=== PATIENT | female | born 1960 | race Caucasian/White ===

== ENCOUNTER 2017-09-28 08:40 | Inpatient (IN) | payer OTHER ==
--- NOTE | 2017-09-25 17:15 | HP ---
CC: Dr. Mathews; Dr. Alonzo * ADMISSION HISTORY AND PHYSICAL: DATE OF ADMISSION: 09/28/17 ATTENDING SURGEON: Dr. Higinio Hyman.* (DICTATED BY DEMETRIO HERNANDEZ) CHIEF COMPLAINT: Bilateral lung nodules. HISTORY OF PRESENT ILLNESS: This is a 57-year-old female with past history of colon cancer, who in recent months had experienced decreased appetite with some weight loss and nocturnal cough. She also has had some neurological symptoms. She reports that the weight loss of approximately 6 pounds has resolved and that she has regained all of the lost weight and currently has a good appetite. She has continued to have cough for which she had been treated with multiple antibiotic regimen with [id number] improvement. She states that the cough is productive of whitish sputum. She denies fever or chills. She states that the cough has been present all winter. She is currently on Keflex. She is an active smoker, who is cutting down and attempting to quit. Chest CT was obtained on 07/24/17, apparently showing multiple bilateral lung nodules; that report is not immediately available. [place] [facility] [place], did confirm multiple solid and ground glass nodules bilaterally measuring up to 8 mm in size with mild increased avidity (up to 2.2 SUV). These appeared to be slightly progressed since the prior study. In addition, there was mildly prominent increased right hilar avidity (up to SUV 2.8) suspicious for adenopathy. Finally, there was increased metabolic activity noted in the C- spine at the C3-4 facet junction that was felt to be consistent with osteoarthritic changes. The patient states that she has also undergone recent CT of the abdomen and pelvis, which she was told was normal. Again, that study is not specifically available. An MRI of the brain on 09/04/17 was normal by report. She denies hemoptysis. As noted above, cough persists. She was seen by Dr. Hyman on 09/04/17 and her diagnostic studies were reviewed. He did note the presence of bilateral lung nodules. These are most prominent in the upper lobes. However, there did appear to some activity in the left lingula. The patient understands the indications for surgery, the risks, benefits, and alternatives, and would like to proceed with left thoracoscopy with lung biopsy. PAST MEDICAL HISTORY: Colon cancer (status post laparoscopic right hemicolectomy [address] [facility] for T3N0 lesion. She received postoperative chemotherapy), hypothyroidism (on replacement), chronic pain, depression, active smoker. PAST SURGICAL HISTORY: Includes right hemicolectomy as noted above, laparoscopic cholecystectomy, and right wrist surgery for de Quervain's tenosynovitis. CURRENT MEDICATIONS: 1. Keflex 500 mg b.i.d., which she started on 09/20/17. 2. Levothyroxine 50 mcg q. day. 3. Gabapentin 600 mg b.i.d. 4. Venlafaxine 25 mg once daily. 5. Vitamin D3 2000 International Units once daily. 6. Vitamin C 500 mg once daily. 7. Ashwagandha (Siberian root for mood stabilization) once daily (the patient instructed to hold after today). DRUG ALLERGIES: CIPRO, BUPROPION, ASPIRIN, NAPROXEN, TORADOL, TRAMADOL (all caused hives) (the patient does tolerate ibuprofen); OXYCODONE (hypotension). FAMILY HISTORY: Negative for lung cancer. There is no known family history of anesthesia problems, bleeding or clotting disorders. SOCIAL HISTORY: The patient lives with her fiance and grandchild. She works as a nurse's aide. She currently smokes 5 cigarettes per day down from one- half pack per day. She has smoked for the past 40 years. She intends to quit. She denies use of alcohol or recent use of recreational drugs. REVIEW OF SYSTEMS: General: No recent constitutional symptoms or acute illnesses other than described in the HPI. Eyes: The patient states she has early cataracts. Ears, Nose, and Throat: No recent problems reported. She does have a full upper denture. Cardiovascular: No chest pain, palpitations, or history of heart murmur. No history of hypertension. Respiratory: As above per HPI, no additions. GI: No problems reported. Colonoscopy done May 2016 and normal by report. No lower GI symptoms. : No problems reported. COMPENSATION ADJUSTER: She is up-to-date as of May 2017 for breast and pelvic exams as well as mammogram, all reportedly normal done at [facility]. Endocrine: No diabetes. She is on thyroid supplementation. Neurological: Chronic pain. Psychological and Psychiatric: She is treated for depression. PHYSICAL EXAMINATION GENERAL: Well-nourished, well-developed female, in no acute distress. VITAL SIGNS: Height 68 inches, weight 140 pounds. Temperature 98.1, blood pressure 102/60, pulse 84. HEENT: Pupils are equal, and round, reactive. EOMs intact. No conjunctival pallor. Oropharynx: Full upper denture. Remaining lower teeth in good repair. No intraoral lesions. NECK: No lymphadenopathy in the cervical or supraclavicular regions. No masses or thyromegaly (she does relate some tenderness along the right SCM since removal of her PowerPort a few years ago. No palpable abnormalities in the neck or right upper chest wall). LUNGS: Clear to auscultation. No rales or wheezes. HEART: Regular rate and rhythm. No murmur appreciated. BREASTS: Not examined. ABDOMEN: Soft, nontender to palpation. No palpable masses or organomegaly. GENITALIA: Not done. RECTAL: Not done. BACK: No spinous process or CVA tenderness. EXTREMITIES: No edema. NEUROLOGICAL: Grossly intact. SKIN: Warm and dry. No suspicious rashes or lesions noted. IMPRESSION: Multiple bilateral lung nodules. PLAN: Left thoracoscopy with lung biopsy. DEMETRIO HERNANDEZ [id number]/[facility] #: [id number] PATIENCE
[~2017-09-28 08:40] MED LIST: Buffered Lidocaine 0.9% SYRIN* 5 ML/SYR SYRINGE INTRADERM ONE; DiMENhydriNATE IV* 50 MG/ML VIAL IV PUSH PRN; Famotidine TAB* 20 MG PO ONE; Morphine INJ* 2 MG/ML 1 ML CARPUJECT IV PRN; Naloxone* 0.4 MG/ML 1 ML VIAL IV PRN; Ondansetron INJ* 2 MG/ML VIAL ONE; PROCHLORPERAZINE INJ 5 MG/ML 2 ML VIAL IV PRN; Scopolamine 1.5 mg* PATCH TRANSDERM PRN
[2017-09-28] MEDS ORDERED: Heparin VIAL(*) 5000 UNITS/ML VIAL (FIVE THOUSAND) ONE (08:50)
[2017-09-28] MEDS ORDERED: Ondansetron ODT TAB* 4 MG ONE (08:51)
[2017-09-28] MEDS ORDERED: Famotidine TAB* 20 MG ONE (08:51)
[2017-09-28] MEDS ORDERED: ceFAZolin 2 GM PREMIX (*) 2 GM/50 ML BAG IVPB ONE (08:51)
[2017-09-28] MEDS ORDERED: Buffered Lidocaine 0.9% SYRIN* 5 ML/SYR SYRINGE ONE (08:51)
[2017-09-28] MEDS ORDERED: Atracurium* 10 MG/ML 10 ML VIAL ONE (09:18)
[2017-09-28] MEDS ORDERED: Midazolam* 1 MG/ML 5 ML VIAL (5 MG) ONE (09:19)
[2017-09-28] MEDS ORDERED: fentaNYL* 50 MCG/ML 5 ML VIAL (250 MCG VIAL) ONE (09:19)
[2017-09-28] MEDS ORDERED: Bupivacaine 0.25% SDV* 30 ML ONE (09:41)
[2017-09-28] MEDS ORDERED: KETAMINE HCL* 50 MG/ML 10 ML VIAL ONE (09:47)
[2017-09-28] MEDS ORDERED: Dexamethasone IV* 4 MG/ML 1 ML (4 MG) ONE (11:11)
[2017-09-28] MEDS ORDERED: Propofol* 10 MG/ML 20 ML BTL IV PUSH ONE (11:11)
[2017-09-28] MEDS ORDERED: Glycopyrrolate IV* 0.2 MG/ML 1 ML VIAL ONE (11:11)
[2017-09-28] MEDS ORDERED: EPHEDrine (Pressors)* 50 MG/ML VIAL ONE (11:11)
[2017-09-28] MEDS ORDERED: Norepinephrine VIAL* 1 MG/ML 4 ML VIAL ONE (11:12)
[2017-09-28] MEDS ORDERED: Phenylephrine INJ* 10 MG/ML 1 ML VIAL (10 MG) ONE (11:12)
[2017-09-28] MEDS ORDERED: Lidocaine 2% PF * 5 ML VIAL ONE (11:12)
[2017-09-28] MEDS ORDERED: Docusate CAP* 100 MG PO PRN (13:27)
[2017-09-28] MEDS ORDERED: oxyCODONE/Acetamin 5/325 MG* TAB PO PRN (13:27)
[2017-09-28] MEDS ORDERED: Ondansetron INJ* 2 MG/ML VIAL IV PRN (13:27)
[2017-09-28] MEDS ORDERED: fentaNYL* 50 MCG/ML 2 ML VIAL (100 MCG VIAL) ONE (13:32)
[2017-09-28] MEDS: fentaNYL* 50 MCG/ML 2 ML VIAL (100 MCG VIAL) IV PRN ×3 (13:32→13:43)
[2017-09-28] MEDS ORDERED: Ketorolac INJ* 30 MG/ML 1 ML VIAL IV SCH (14:00)
[2017-09-28] MEDS ORDERED: Morphine INJ* 10 MG/ML 1 ML CARPUJECT ONE (14:24)
[2017-09-28] MEDS ORDERED: HYDROcodone/ACETAMIN 5-325 MG* 1 TAB ONE (14:24)
[2017-09-28] MEDS: HYDROcodone/ACETAMIN 5-325 MG* 1 TAB PO PRN (14:25)
--- NOTE | 2017-09-28 14:46 | RAD ---
HISTORY: Left-sided chest tube COMPARISONS: January 24, 2013 VIEWS: 1: frontal portable view of the chest at 1:30 PM FINDINGS: LINES AND TUBES: A left-sided chest tube is noted. CARDIOMEDIASTINAL SILHOUETTE: The cardiomediastinal silhouette is normal for portable technique. PLEURA: The costophrenic angles are sharp. No pleural abnormalities are noted. There is no appreciable pneumothorax. LUNG PARENCHYMA: There is mild perihilar alveolar opacification. ABDOMEN: The upper abdomen is clear. There is no subphrenic gas. BONES AND SOFT TISSUES: No bone or soft tissue abnormalities are noted. IMPRESSION: LEFT-SIDED CHEST TUBE WITH MILD PERIHILAR CONSOLIDATION.
[2017-09-28] MEDS ORDERED: NS 0.9% 1000 ML* 1,000 ML IV ONE ×2 (17:55→18:00)
[2017-09-28] MEDS: Heparin VIAL(*) 5000 UNITS/ML VIAL (FIVE THOUSAND) SUBCUT SCH ×2 (18:06→20:39)
[2017-09-28] MEDS: Gabapentin CAP(*) 300 MG PO SCH (20:36)
[2017-09-29] MEDS: HYDROcodone/ACETAMIN 5-325 MG* 1 TAB PO PRN ×5 (00:30→17:33)
[2017-09-29] MEDS: HYDROmorphone INJ* 2 MG/ML CARPUJECT SYRINGE IV PRN ×6 (02:02→20:47)
[2017-09-29] MEDS: Levothyroxine TAB* 50 MCG TAB PO SCH (05:29)
[2017-09-29] MEDS: Heparin VIAL(*) 5000 UNITS/ML VIAL (FIVE THOUSAND) SUBCUT SCH ×3 (05:31→20:50)
--- NOTE | 2017-09-29 06:11 | OP ---
CC: Dr. Laureano Mathews; Dr. Rosie Alonzo * DATE OF OPERATION: 09/28/17 - ROOM #342 DATE OF : 58 SURGEON: Higinio Hyman MD SUBSTANCE ABUSE PREVENTION COORDINATOR: None. ANESTHESIOLOGIST: Dr. Rocha. ANESTHESIA: General anesthetic, local infiltration. PRE-OP DIAGNOSIS: Nodules in the left lung. POST-OP DIAGNOSIS: Nodules in the left lung. OPERATIVE PROCEDURE: Left video thoracoscopy with left lung biopsies. DESCRIPTION OF PROCEDURE: The patient was supine on the operating room table. After adequate intravenous antibiotics, compression stockings, Roosevelt Hugger warmer, and double lumen intubation, a fiberoptic bronchoscopy was also carried out to confirmed location of the double-lumen intubation, she was placed in the lateral decubitus position with the left chest upward, stockings and warmers were also in place, she had an axillary roll and everything was positioned and padded, and she was secured to the table. The left chest was prepped with antiseptic and draped in a sterile fashion. Local infiltrative anesthesia was administered and the chest entered through approximately the 8th interspace. The scope was entered and two additional 5 mm sites were chosen and cannulae were placed there. The lung was examined all over with special attention to areas indicated by the imaging and no visible nodules could be identified. Palpation was carried out along the anterior aspect of the upper lobe where there seemed to be some superficial lesions and these were not palpable either. It was decided that a wedge of lung would be taken out using stapler and a piece of lung tissue approximately 3 x 3 x 6 cm was removed and sent fresh to Pathology. They were unable to identify any lesions in the area. Additional tissue was also taken a little further up on the lung, also medially, and this was may be a 3 x 4 x 4 cm piece, which was sent to Pathology as well. Hemostasis was excellent. A 32-Mongolian chest tube was put into the chest cavity , placed up towards the apex and sutured at the skin with Prolene suture. The skin incisions were closed with 5-0 Vicryl, followed by Steri-Strips. A gauze dressing was placed and the chest tube was hooked to the Pleur-evac suction. She was awakened, extubated, and brought to recovery in good condition. Local anesthetic was given in an intercostal block as well. Sponge and instruments counts were correct at the end of the procedure. Estimated blood loss was maybe 50 mL. Specimens as noted above. [id number]/[facility] #: [id number] [facility] CENTERFredy
[2017-09-29] MEDS: Gabapentin CAP(*) 300 MG PO SCH ×2 (09:17→20:48)
[2017-09-29] MEDS: CMCS Venlafaxine TAB (NF) 25 MG TAB PO SCH (09:18)
--- NOTE | 2017-09-29 10:42 | PN ---
Progress Note - Progress Note Date of Service: 09/29/17 Note: POD#1 s/p VATS, left Afeb, VS noted UO adeq. CT level 210 since OR, no air leak Pain control and issue Alert and coherent, color good Breathing unlabored, adeq aeration, some rattles on left, drsg w/ min drainage Tender LUQ, seems to be dermatome related to chest tube, hyperesthesia noted Impr adeq recovery post vats To water seal recheck drainage later today, poss d/c tube increase norco until pain better await path
--- NOTE | 2017-09-29 13:56 | PN ---
Progress Note - Progress Note Date of Service: 09/29/17 Note: Left chest tube removed with ease after premedicating with Dilaudid IV; occlusive dressing applied;pt tolerated well.
[2017-09-29] MEDS ORDERED: Polyethylene Glycol 3350* 17 GM PACKET PO PRN (17:48)
[2017-09-29] MEDS ORDERED: Senna TAB ONE (18:08)
[2017-09-29] MEDS ORDERED: Senna TAB PO PRN (18:08)
[2017-09-30] MEDS: HYDROcodone/ACETAMIN 5-325 MG* 1 TAB PO PRN (01:28)
[2017-09-30] MEDS: Levothyroxine TAB* 50 MCG TAB PO SCH (05:43)
[2017-09-30] MEDS: Heparin VIAL(*) 5000 UNITS/ML VIAL (FIVE THOUSAND) SUBCUT SCH (05:45)
[2017-09-30 08:58] VITALS: BP 101/53
--- NOTE | 2017-09-30 09:14 | PN ---
Progress Note - Progress Note Date of Service: 09/30/17 Note: POD#2 s/p Left VATS Discharge note dictated.
[2017-09-30] MEDS: Gabapentin CAP(*) 300 MG PO SCH (09:53)
[2017-09-30] MEDS: CMCS Venlafaxine TAB (NF) 25 MG TAB PO SCH (09:53)
--- NOTE | 2017-09-30 14:18 | DS ---
CC: Higinio Hyman MD; Rosie Alonzo MD; Dr. Laureano Mathews. DISCHARGE SUMMARY: DATE OF ADMISSION: 09/28/17 DATE OF DISCHARGE: 09/30/17 PRINCIPAL ADMITTING DIAGNOSIS: Nodule of both lungs. OPERATIVE PROCEDURE ON THIS ADMISSION: Left videothoracoscopy with biopsies. HOSPITAL COURSE: The patient came to the hospital, was taken to the operating room on 09/28/17 where she underwent left videothoracoscopy and left lung biopsy of the upper lobe. She had a chest tube m aintained for about 36 hours and that was removed. Her pain control improved dramatically after violetta merlyn of the chest tube. On the morning of 09/30/17, she was tolerating oral intake, managing well on o ral pain medication, breathing well, and ambulating independently. Lung sounds were good. She was d ischarged with instructions and will follow up in the office in about a week. She had a pathology re port, which showed no evidence of malignancy. 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 [id number]/[facility] #: [id number]
[2017-10-01] MEDS ORDERED: Scopolamine PATCH Remove* 1 NOTE MISC PATCH OFF ONE (05:56)
== END 2017-09-30 11:00 | disposition home or self-care (01) | DRG 121 ==
LOC: OR 08:40 → SSU 09:00 → INTOOBSV 13:27 → EDSTATUS 13:30 → OBSVTOIN 09-29 09:00
PROVIDERS: ADMIT Surgery; ATTEND Surgery
PROC: 0BBG4ZX Excision of Left Upper Lung Lobe, Percutaneous Endoscopic Approach, Diagnostic (ICD-10-PCS; 2017-09-28)
PROC: 0WPBX0Z Removal of Drainage Device from Left Pleural Cavity, External Approach (ICD-10-PCS; principal; 2017-09-29)
DX: J84.116 Cryptogenic organizing pneumonia (principal); Z85.038 Personal history of other malignant neoplasm of large intestine; E03.9 Hypothyroidism, unspecified; Z92.21 Personal history of antineoplastic chemotherapy; G89.29 Other chronic pain; Z90.49 Acquired absence of other specified parts of digestive tract; F32.9 Major depressive disorder, single episode, unspecified; Z88.1 Allergy status to other antibiotic agents; Z88.6 Allergy status to analgesic agent; Z88.5 Allergy status to narcotic agent; Z88.8 Allergy status to other drugs, medicaments and biological substances; F17.210 Nicotine dependence, cigarettes, uncomplicated; H26.9 Unspecified cataract
CPT/HCPCS: 71045; 88307; 88331; 88332; A9270-GY; C1776; J0690; J1100; J1170; J1644; J2250; J2270; J2704; J3010

== ENCOUNTER 2017-10-22 10:43 | Emergency (ER) | payer OTHER ==
[2017-10-22] MEDS ORDERED: NS 0.9% 1000 ML* 1,000 ML IV ONE (11:06)
--- NOTE | 2017-10-22 11:30 | RAD ---
INDICATION: Chest pain. Pulmonary metastasis. COMPARISON: September 28, 2017 TECHNIQUE: An AP portable view obtained at 1117 hours is submitted. FINDINGS: Bones/Soft Tissues: There are no acute bony findings. Cardiomediastinal: The cardiomediastinal silhouette is normal. Lungs: There are no infiltrates. There is no pneumothorax Pleura: There are no pleural effusions. Other: None IMPRESSION: NO ACTIVE CARDIOPULMONARY DISEASE. NO SIGNIFICANT PLAIN RADIOGRAPHIC ABNORMALITIES.
[2017-10-22 11:31] LABS: ABS Basophils 0.1 10^3/ul (0-0.2); ABS Eosinophils 0.4 10^3/ul (0-0.6); ABS Lymphocytes 2.3 10^3/ul (1.0-4.8); ABS Monocytes 0.5 10^3/ul (0-0.8); ABS Neutrophils 2.9 10^3/ul (1.5-7.7); ABS Nucleated RBC 0 10^3/ul; Eosinophil % 5.7 % (0-6); Hematocrit 40 % (35-47); Hemoglobin 13.2 g/dl (12.0-16.0); Lymphocyte % 37.4 % (25-47); Mean Corpuscular HGB Conc 33 g/dl (31-36); Mean Corpuscular Hemoglobin 30 pg (27-31); Mean Corpuscular Volume 89 fL (80-97); Mean Platelet Volume 7.3 um3 (7.4-10.4); Nucleated Red Blood Cells % 0.1; Platelet Count 337 10^3/ul (150-450); Red Blood Count 4.43 10^6/ul (4.0-5.4); Red Cell Distribution Width 13 % (10.5-15); White Blood Count 6.2 10^3/ul (3.5-10.8)
[2017-10-22 11:35] LABS: Urine Appearance Clear; Urine Blood Negative (Negative); Urine Color Yellow; Urine Ketones Negative (Negative); Urine Protein Negative (Negative); Urine Specific Gravity 1.012 (1.010-1.030); Urine Urobilinogen Negative (Negative)
[2017-10-22 11:40] LABS: INR 0.93 (0.77-1.02)
[2017-10-22 11:41] LABS: EGFR Non-African American 73.7 (>60)
[2017-10-22] MEDS ORDERED: Iohexol 300* (CONTRAST) 10 ML SDV IV ONE (12:47)
--- NOTE | 2017-10-22 13:41 | RAD ---
INDICATION: Abdominal pain. Diverticulitis . COMPARISON: CT chest/abdomen/pelvis July 24, 2017 TECHNIQUE: Axial source images were obtained from the hemidiaphragms to the symphysis pubis following administration of oral and intravenous contrast. 85 mL Omnipaque 300 was utilized. Coronal and sagittal reconstructed images were acquired. Lung bases: The lung bases are clear. Liver: The liver is normal in size. There are no new masses. There are numerous subcentimeter hepatic hypodensities appear unchanged. There is no ductal dilatation. Gallbladder: Cholecystectomy. Spleen: The spleen is normal in size. There are no masses. Pancreas: There is no focal pancreatic mass or ductal dilatation. Adrenal glands: There is no evidence of adrenal mass. Kidneys: The kidneys are normal in size and position. There are prompt nephrograms and there is prompt excretion bilaterally. There are no renal parenchymal masses. There is no evidence of nephrolithiasis. Adenopathy: There is no evidence of adenopathy by size criteria. Fluid collections: There are no free or localized fluid collections. Vessels:There are no significant atherosclerotic changes involving the aorta. There is no focal aneurysm. The iliac vessels are normal in caliber. The IVC appears normal. There are prominent pelvic veins GI tract: There are no acute CT bowel findings. There is right hemicolectomy. There are scant diverticula without CT evidence of acute diverticulitis Pelvic organs: The uterus and adnexa appear normal Bladder: There are no bladder masses. Abdominal and pelvic soft tissues: The extraperitoneal abdominal and pelvic soft tissues appear normal.. Osseous structures: There are no acute osseous findings. Other: None IMPRESSION: 1. No convincing evidence of metastatic disease to the abdomen or pelvis. Multiple stable hypodensities in the liver. 2. Right hemicolectomy. No finding specific for recurrence. Scant diverticula without CT evidence of acute diverticulitis. 3. Prominent pelvic veins, unchanged. This could result in pelvic congestion syndrome.
[2017-10-22] MEDS ORDERED: Omeprazole CAP* 20 MG PO ONE (14:01)
[2017-10-22 14:14] VITALS: BP 128/81
--- NOTE | 2017-10-22 14:16 | ED ---
Jolie Hoskins Gabriel scribed for Gilbert Cortez on 10/22/17 at 1105 . Abdominal Pain/Female - HPI Summary HPI Summary: This patient is a 57 year old F presenting to [facility] with a chief complaint of epigastria pain that began after her lung biopsy on 09-28-17 and has gotten worse since. Patient reports CP and ABD bloating. The patient rates the pain 8/10 in severity. Symptoms aggravated by sitting up. Patient denies fever and chills. The pt has a hx of colon cancer and had a lung biopsy 09-28 to r/o metastasis to the lung. Since then she has had abd pain and bloating, she contacted her PCP who said it should resolve but it has not - History of Current Complaint Chief Complaint: Maria Victoria Stated Complaint: ABD PAIN FOLLOWING SURGERY Time Seen by Provider: 10/22/17 10:56 Hx Obtained From: Patient Onset/Duration: Lasting Weeks, Still Present Timing: Constant Severity Initially: Severe Severity Currently: Severe Pain Intensity: 8 Pain Scale Used: 0-10 Numeric Location: Epigastric Radiates: Yes Radiates to: Chest Associated Signs and Symptoms: Positive: Other: - CP and ABD bloating Allergies/Adverse Reactions: Allergies Allergy/AdvReac Type Severity Reaction Status Date / Time aspirin Allergy Severe Hives Verified 10/22/17 10:52 bupropion [From Wellbutrin] Allergy Severe Hives Verified 10/22/17 10:52 ciprofloxacin [From Cipro] Allergy Severe Hives Verified 10/22/17 10:52 ketorolac Allergy Severe Hives Verified 10/22/17 10:52 naproxen [From Aleve] Allergy Severe Hives Verified 10/22/17 10:52 oxycodone Allergy Severe Hives Verified 10/22/17 10:52 tramadol Allergy Severe Hives Verified 10/22/17 10:52 Home Medications: Home Medications Ascorbic Acid TAB* [Vitamin C TAB*] 500 mg PO DAILY 10/22/17 [History Confirmed 10/22/17] Cholecalciferol TAB* [Vitamin D TAB*] 2,000 units PO DAILY 10/22/17 [History Confirmed 10/22/17] Gabapentin CAP(*) [Neurontin 300 CAP(*)] 600 mg PO BID 10/22/17 [History Confirmed 10/22/17] Levothyroxine TAB* [Synthroid TAB*] 50 mcg PO DAILY 10/22/17 [History Confirmed 10/22/17] Venlafaxine TAB (NF) [Effexor TAB (NF)] 25 mg PO DAILY 10/22/17 [History Confirmed 10/22/17] PMH/Surg Hx/FS Hx/Imm Hx Endocrine/Hematology History: Reports: Hx Thyroid Disease - on medication, Hx Anemia - while on chemo Cardiovascular History: Denies: Other Cardiovascular Problems/Disorders Respiratory History: Denies: Hx Chronic Obstructive Pulmonary Disease (COPD), Other Respiratory Problems/Disorders - "spots on lung" GI History: Reports: Other GI Disorders - Colon cancer 2009, resected, Cholecystectomy 2008 History: Reports: Other Problems/Disorders - Frequent UTI's, every two months per pt Musculoskeletal History: Reports: Hx Arthritis - pt states bones crack and ache , not diagnosed Denies: Other Musculoskeletal History Sensory History: Reports: Hx Contacts or Glasses Denies: Hx Hearing Aid Opthamlomology History: Reports: Hx Contacts or Glasses Neurological History: Denies: Other Neuro Impairments/Disorders Psychiatric History: Reports: Hx Anxiety - on medication, Hx Depression - on medication Denies: Other Psychiatric Issues/Disorders - Cancer History Hx Chemotherapy: Yes - 12 rounds - Surgical History Surgery Procedure, Year, and Place: Colon resection 2008 [place]. Cholecystectomy 2008 [place]. C section x 3. Right trigger thumb 2012 Hx Anesthesia Reactions: No Infectious Disease History: No Infectious Disease History: Denies: Hx of Known/Suspected MRSA, History Other Infectious Disease, Traveled Outside the [place] in Last 30 Days - Social History Alcohol Use: None Substance Use Type: Reports: None Smoking Status (MU): Light Every Day Tobacco Smoker Type: Cigarettes Amount Used/How Often: 5 cigs per day- used to smoke 1 1/2 ppd for 40 years Have You Smoked in the Last Year: Yes Review of Systems Negative: Fever, Chills Positive: Chest Pain Positive: Abdominal Pain, Other - bloating All Other Systems Reviewed And Are Negative: Yes Physical Exam - Summary Physical Exam Summary: Appearance: Well appearing, no pain distress Skin: warm, dry, reflects adequate perfusion, scars on the left side of the chest Head/face: normal Eyes: EOMI, KARINA ENT: normal Neck: supple, non-tender Respiratory: CTA, breath sounds present Cardiovascular: RRR, pulses symmetrical Abdomen: diffuse ABD tenderness Bowel: present Musculoskeletal: normal, strength/ROM intact Neuro: normal, sensory motor intact, A&Ox3 Triage Information Reviewed: Yes Vital Signs On Initial Exam: Initial Vitals Temp Pulse Resp BP Pulse Ox 97.7 F 73 15 153/89 98 10/22/17 10:52 10/22/17 10:52 10/22/17 10:52 10/22/17 10:52 10/22/17 10:52 Vital Signs Reviewed: Yes Diagnostics - Vital Signs Vital Signs Temp Pulse Resp BP Pulse Ox 10/22/17 10:52 97.7 F 73 15 153/89 98 - Laboratory Lab Results: Lab Results 10/22/17 10/22/17 10/22/17 Range/Units 11:14 11:18 11:18 WBC 6.2 (3.5-10.8) 10^3/ul RBC 4.43 (4.0-5.4) 10^6/ul Hgb 13.2 (12.0-16.0) g/dl Hct 40 (35-47) % MCV 89 (80-97) fL MCH 30 (27-31) pg MCHC 33 (31-36) g/dl RDW 13 (10.5-15) % Plt Count 337 (150-450) 10^3/ul MPV 7.3 L (7.4-10.4) um3 Neut % (Auto) 47.3 (38-83) % Lymph % (Auto) 37.4 (25-47) % [place] % (Auto) 8.3 H (0-7) % Eos % (Auto) 5.7 (0-6) % Baso % (Auto) 1.3 (0-2) % Absolute Neuts (auto) 2.9 (1.5-7.7) 10^3/ul Absolute Lymphs (auto) 2.3 (1.0-4.8) 10^3/ul Absolute Monos (auto) 0.5 (0-0.8) 10^3/ul Absolute Eos (auto) 0.4 (0-0.6) 10^3/ul Absolute Basos (auto) 0.1 (0-0.2) 10^3/ul Absolute Nucleated RBC 0 10^3/ul Nucleated RBC % 0.1 INR (Anticoag Therapy) 0.93 (0.77-1.02) APTT 32.2 (26.0-36.3) seconds Sodium 136 L (139-145) mmol/L Potassium 4.2 (3.5-5.0) mmol/L Chloride 106 (101-111) mmol/L Carbon Dioxide 24 (22-32) mmol/L Anion Gap 6 (2-11) mmol/L BUN 13 (6-24) mg/dL Creatinine 0.80 (0.51-0.95) mg/dL Est GFR ( Amer) 94.7 (>60) Est GFR (Non-Af Amer) 73.7 (>60) BUN/Creatinine Ratio 16.3 (8-20) Glucose 104 H (70-100) mg/dL Lactic Acid (0.5-2.0) mmol/L Calcium 9.3 (8.6-10.3) mg/dL Total Bilirubin 0.30 (0.2-1.0) mg/dL AST 16 (13-39) U/L ALT 11 (7-52) U/L Alkaline Phosphatase 68 (34-104) U/L Troponin I 0.00 (<0.04) ng/mL C-Reactive Protein 1.56 (< 5.00) mg/L Total Protein 7.0 (6.4-8.9) g/dL Albumin 3.9 (3.2-5.2) g/dL Globulin 3.1 (2-4) g/dL Albumin/Globulin Ratio 1.3 (1-3) Lipase 54 (11.0-82.0) U/L Urine Color Urine Appearance Urine pH (5-9) Ur Specific [place] (1.010-1.030) Urine Protein (Negative) Urine Ketones (Negative) Urine Blood (Negative) Urine Nitrate (Negative) Urine Bilirubin (Negative) Urine Urobilinogen (Negative) Ur Leukocyte Esterase (Negative) Urine Glucose (Negative) 10/22/17 10/22/17 Range/Units 11:18 11:20 WBC (3.5-10.8) 10^3/ul RBC (4.0-5.4) 10^6/ul Hgb (12.0-16.0) g/dl Hct (35-47) % MCV (80-97) fL MCH (27-31) pg MCHC (31-36) g/dl RDW (10.5-15) % Plt Count (150-450) 10^3/ul MPV (7.4-10.4) um3 Neut % (Auto) (38-83) % Lymph % (Auto) (25-47) % [place] % (Auto) (0-7) % Eos % (Auto) (0-6) % Baso % (Auto) (0-2) % Absolute Neuts (auto) (1.5-7.7) 10^3/ul Absolute Lymphs (auto) (1.0-4.8) 10^3/ul Absolute Monos (auto) (0-0.8) 10^3/ul Absolute Eos (auto) (0-0.6) 10^3/ul Absolute Basos (auto) (0-0.2) 10^3/ul Absolute Nucleated RBC 10^3/ul Nucleated RBC % INR (Anticoag Therapy) (0.77-1.02) APTT (26.0-36.3) seconds Sodium (139-145) mmol/L Potassium (3.5-5.0) mmol/L Chloride (101-111) mmol/L Carbon Dioxide (22-32) mmol/L Anion Gap (2-11) mmol/L BUN (6-24) mg/dL Creatinine (0.51-0.95) mg/dL Est GFR ( Amer) (>60) Est GFR (Non-Af Amer) (>60) BUN/Creatinine Ratio (8-20) Glucose (70-100) mg/dL Lactic Acid 1.0 (0.5-2.0) mmol/L Calcium (8.6-10.3) mg/dL Total Bilirubin (0.2-1.0) mg/dL AST (13-39) U/L ALT (7-52) U/L Alkaline Phosphatase (34-104) U/L Troponin I (<0.04) ng/mL C-Reactive Protein (< 5.00) mg/L Total Protein (6.4-8.9) g/dL Albumin (3.2-5.2) g/dL Globulin (2-4) g/dL Albumin/Globulin Ratio (1-3) Lipase (11.0-82.0) U/L Urine Color Yellow Urine Appearance Clear Urine pH 6.0 (5-9) Ur Specific [place] 1.012 (1.010-1.030) Urine Protein Negative (Negative) Urine Ketones Negative (Negative) Urine Blood Negative (Negative) Urine Nitrate Negative (Negative) Urine Bilirubin Negative (Negative) Urine Urobilinogen Negative (Negative) Ur Leukocyte Esterase Negative (Negative) Urine Glucose Negative (Negative) Result Diagrams: 10/22/17 11:18 10/22/17 11:14 Lab Statement: Any lab studies that have been ordered have been reviewed, and results considered in the medical decision making process. - Radiology CXR Radiology Interpretation Completed By: Radiologist - NO ACTIVE CARDIOPULMONARY DISEASE. NO SIGNIFICANT PLAIN RADIOGRAPHIC ABNORMALITIES. ED physician has reviewed this radiology report. - CT CT abd/pelvis CT Interpretation Completed By: Radiologist - 1. No convincing evidence of metastatic disease to the abdomen or pelvis. Multiple stable hypodensities in the liver. 2. Right hemicolectomy. No finding specific for recurrence. Scant diverticula without CT evidence of acute diverticulitis. 3. Prominent pelvic veins, unchanged. This could result in pelvic congestion syndrome. ED physician has reviewed this radiology report. - EKG 11:24 Cardiac Rate: NL EKG Rhythm: Sinus Rhythm - at 69 BPM EKG Interpretation: no acute changes Abdominal Pain Fem Course/Dx - Course Course Of Treatment: This patient is a 57 year old F presenting to [facility] with a chief complaint of epigastria pain that began after her lung biopsy on 09-28-17 and has gotten worse since. Patient reports CP and ABD bloating. The patient rates the pain 8/10 in severity. Symptoms aggravated by sitting up. Patient denies fever and chills. The pt has a hx of colon cancer and had a lung biopsy to r/o metastasis to the lung. Since then she has had abd pain and bloating, she contacted her PCP who said it should resolve but it has not. An EKG reveals NSR. CXR reveals, per radiologist, NO ACTIVE CARDIOPULMONARY DISEASE. NO SIGNIFICANT PLAIN RADIOGRAPHIC. ABNORMALITIES. CT ABD/Pelvis reveals, 1. No convincing evidence of metastatic disease to the abdomen or pelvis. Multiple stable. hypodensities in the liver. 2. Right hemicolectomy. No finding specific for recurrence. Scant diverticula without CT. evidence of acute diverticulitis. 3. Prominent pelvic veins, unchanged. This could result in pelvic congestion syndrome. ED physician has reviewed this radiology report. Dx ABD pain. Blood work and UA obtained. In the ED course the patient was given prilosec. Patient will be discharged and follow up from GI. The patient is agreeable with this plan. - Diagnoses Differential Diagnosis: Positive: Diverticulitis, Pancreatitis, Renal Colic, Urinary Tract Infection Provider Diagnoses: Abdominal pain Discharge - Sign-Out/Discharge Documenting (check all that apply): Discharge/Admit/Transfer - Discharge Plan Condition: Stable Disposition: HOME Prescriptions: Pantoprazole Sodium [Protonix] 40 mg PO ONCE #30 jessica. Patient Education Materials: Acute Abdominal Pain (ED) Referrals: Ranjeet Felix MD [Medical Doctor] - 3 Days Additional Instructions: RETURN TO THE ER FOR ANY NEW OR WORSENING SYMPTOMS - Billing Disposition and Condition Condition: STABLE Disposition: HOME The documentation as recorded by the Jolie gómez Gabriel accurately reflects the service I personally performed and the decisions made by , Gilbert Cortez.
== END 2017-10-22 14:13 | disposition home or self-care (01) ==
LOC: ED 10:43
DX: R10.13 Epigastric pain (principal); K76.9 Liver disease, unspecified; K57.90 Diverticulosis of intestine, part unspecified, without perforation or abscess without bleeding; E07.9 Disorder of thyroid, unspecified; F17.210 Nicotine dependence, cigarettes, uncomplicated; Z90.49 Acquired absence of other specified parts of digestive tract; Z88.6 Allergy status to analgesic agent; Z88.3 Allergy status to other anti-infective agents; Z88.5 Allergy status to narcotic agent; Z88.8 Allergy status to other drugs, medicaments and biological substances
CPT/HCPCS: 36415; 71045; 74177; 80053; 81003; 83605; 83690; 84484; 85025; 85610; 85730; 86140; 93005; 99284; A9270-GY; Q9967

== ENCOUNTER 2021-05-25 10:30 | Inpatient (IN) ==
[~2021-05-25 10:30] MED LIST changes: -Buffered Lidocaine 0.9% SYRIN* 5 ML/SYR SYRINGE INTRADERM ONE; +Buffered Lidocaine 1% SYRIN 1 ml INTRADERM ONE; -DiMENhydriNATE IV* 50 MG/ML VIAL IV PUSH PRN; -Famotidine TAB* 20 MG PO ONE; +Lactated Ringers 1000 ml BAG 1,000 ML IV SCH; -Morphine INJ* 2 MG/ML 1 ML CARPUJECT IV PRN; -Naloxone* 0.4 MG/ML 1 ML VIAL IV PRN; -Ondansetron INJ* 2 MG/ML VIAL ONE; -PROCHLORPERAZINE INJ 5 MG/ML 2 ML VIAL IV PRN; -Scopolamine 1.5 mg* PATCH TRANSDERM PRN
[2021-05-25] MEDS ORDERED: Dexamethasone IV 4 MG/ML VIAL 1 ml VIAL ONE (10:38)
[2021-05-25] MEDS ORDERED: Lidocaine 2% PF 5 ML VIAL ONE (10:38)
[2021-05-25] MEDS ORDERED: Ondansetron 4 mg VIAL 2 MG/ML 2 ml VIAL ONE (10:38)
[2021-05-25] MEDS ORDERED: Midazolam 2 mg/2 ml VIAL 1 mg/ml 2 ml VIAL (2 mg) ONE (10:38)
[2021-05-25] MEDS ORDERED: fentaNYL 250 mcg/5 ml 50 MCG/ML 5 ml VIAL (250 MCG) ONE (10:38)
[2021-05-25] MEDS ORDERED: Rocuronium 50 mg VIAL 10 mg/ml 5 ml VIAL (50 mg) ONE ×2 (10:38→14:53)
[2021-05-25] MEDS ORDERED: Propofol 10 MG/ML 20 ML BTL ONE (10:38)
[2021-05-25] MEDS ORDERED: Heparin 5000 UNITS/ML 1 mL VIAL ONE (11:00)
[2021-05-25] MEDS ORDERED: Bupivacaine 0.25% SDV PF 10 ML VIAL INJ ONE (11:36)
[2021-05-25] MEDS ORDERED: Ertapenem 1 GM in NS 0.9% 50 ML IVPB ONE (12:00)
[2021-05-25] MEDS ORDERED: Phenylephrine 40 mcg/mL 10mL (400mcg) SYRINGE ONE (12:48)
[2021-05-25] MEDS ORDERED: Scopolamine 1 mg/72hr PATCH TRANSDERM PRN (16:03)
[2021-05-25] MEDS ORDERED: Ondansetron 4 mg VIAL 2 MG/ML 2 ml VIAL IV PRN ×2 (16:03→16:42)
[2021-05-25] MEDS ORDERED: diPHENhydraMINE IV 50 MG/ML 1 ml VIAL (BENADRYL) IV PRN (16:03)
[2021-05-25] MEDS ORDERED: Naloxone 0.4 mg VIAL 0.4 mg/ml 1 ml VIAL IV PRN (16:03)
[2021-05-25] MEDS ORDERED: DiMENhydriNATE IV 50 mg/ml 1 ml VIAL IV PUSH PRN (16:03)
[2021-05-25] MEDS ORDERED: Acetaminophen IV 1 GM/100ML 100 ML IV ONE (16:43)
[2021-05-25] MEDS ORDERED: HYDROmorphone 1 MG/1 ML SYRINGE ONE (16:43)
[2021-05-25] MEDS: HYDROmorphone 1 MG/1 ML SYRINGE IV PRN ×5 (16:44→17:09)
[2021-05-25] MEDS ORDERED: fentaNYL 100 mcg/2 ml 50 MCG/ML VIAL ONE (17:14)
[2021-05-25] MEDS: fentaNYL 100 mcg/2 ml 50 MCG/ML VIAL IV PRN ×3 (17:15→17:50)
[2021-05-25] MEDS: Nicotine PATCH 14 MG/24 HR PATCH TRANSDERM SCH (20:03)
[2021-05-25] MEDS: HYDROcodone/ACETAMIN 5/325 mg TAB PO PRN (20:51)
[2021-05-25] MEDS ORDERED: diPHENhydraMINE 25 mg TAB PO ONE (23:30)
[2021-05-26] MEDS: HYDROmorphone 0.5 MG/0.5 ML SYRINGE IV SLOW PU PRN ×6 (01:04→23:32)
[2021-05-26 07:08] LABS: ABS Basophils 0.1 10^3/ul (0-0.2); ABS Lymphocytes 1.9 10^3/ul (1.0-4.8); ABS Monocytes 1.1 10^3/ul (0-0.8); Eosinophil % 0.3 %; Hematocrit 34 % (35-47); Hemoglobin 11.7 g/dL (12.0-16.0); Lymphocyte % 12.4 %; Mean Corpuscular HGB Conc 34 g/dL (31-36); Mean Corpuscular Hemoglobin 32 pg (27-31); Mean Corpuscular Volume 92 fL (80-97); Mean Platelet Volume 7.4 fL (7.4-10.4); Platelet Count 296 10^3/uL (150-450); Red Blood Count 3.69 10^6 /uL (3.70-4.87); Red Cell Distribution Width 13 % (10-15); White Blood Count 15.2 10^3/uL (3.5-10.8)
[2021-05-26 07:24] LABS: Calcium 8.6 mg/dL (8.6-10.3); Potassium 4.2 mmol/L (3.5-5.0); eGFR CKD-EPI 70.4 (>60)
[2021-05-26] MEDS: Nicotine PATCH 14 MG/24 HR PATCH TRANSDERM SCH (08:12)
[2021-05-26] MEDS: Heparin 5000 UNITS/ML 1 mL VIAL SUBCUT SCH ×2 (08:13→20:37)
[2021-05-26] MEDS: Venlafaxine XR 75 mg PO SCH (10:11)
[2021-05-26] MEDS: HYDROcodone/ACETAMIN 5/325 mg TAB PO PRN ×2 (12:40→18:31)
[2021-05-27] MEDS: HYDROcodone/ACETAMIN 5/325 mg TAB PO PRN ×4 (03:23→21:37)
[2021-05-27 06:31] LABS: ABS Eosinophils 0.3 10^3/ul (0-0.6); ABS Lymphocytes 2.2 10^3/ul (1.0-4.8); ABS Monocytes 0.8 10^3/ul (0-0.8); ABS Neutrophils 5.8 10^3/ul (1.5-7.7); Eosinophil % 3.8 %; Hematocrit 35 % (35-47); Hemoglobin 11.9 g/dL (12.0-16.0); Lymphocyte % 23.7 %; Mean Corpuscular HGB Conc 34 g/dL (31-36); Mean Corpuscular Hemoglobin 31 pg (27-31); Mean Corpuscular Volume 92 fL (80-97); Mean Platelet Volume 7.5 fL (7.4-10.4); Nucleated Red Blood Cells % 0.1; Platelet Count 302 10^3/uL (150-450); Red Blood Count 3.84 10^6 /uL (3.70-4.87); Red Cell Distribution Width 13 % (10-15); White Blood Count 9.1 10^3/uL (3.5-10.8)
[2021-05-27 06:50] LABS: Calcium 8.8 mg/dL (8.6-10.3); Potassium 4.1 mmol/L (3.5-5.0); eGFR CKD-EPI 73.3 (>60)
[2021-05-27] MEDS: Venlafaxine XR 75 mg PO SCH (08:06)
[2021-05-27] MEDS: Heparin 5000 UNITS/ML 1 mL VIAL SUBCUT SCH ×2 (08:06→21:38)
[2021-05-27] MEDS: Nicotine PATCH 14 MG/24 HR PATCH TRANSDERM SCH (08:06)
[2021-05-27] MEDS ORDERED: Flu vaccine *QUAD* 2021-22* 0.5 ML SYRINGE IM ONE (09:00)
[2021-05-27 11:17] LABS: Urine Appearance Clear; Urine Bilirubin Negative (Negative); Urine Blood 2+ (Negative); Urine Color Yellow; Urine Glucose Negative (Negative); Urine Ketones Negative (Negative); Urine Nitrite Negative (Negative); Urine Protein Negative (Negative); Urine Specific Gravity 1.008 (1.002-1.030); Urine Urobilinogen Negative (Negative)
[2021-05-27 11:19] LABS: Urine Bacteria Absent (Absent); Urine Red Blood Cell 1+(3-5/hpf) (Absent); Urine Squamous Epithelial Cell Present (Absent); Urine White Blood Cell Trace(0-5/hpf) (Absent)
[2021-05-28] MEDS: HYDROcodone/ACETAMIN 5/325 mg TAB PO PRN (05:29)
[2021-05-28 06:43] LABS: ABS Basophils 0.1 10^3/ul (0-0.2); ABS Eosinophils 0.7 10^3/ul (0-0.6); ABS Lymphocytes 1.8 10^3/ul (1.0-4.8); ABS Monocytes 0.7 10^3/ul (0-0.8); ABS Neutrophils 5.6 10^3/ul (1.5-7.7); Eosinophil % 7.9 %; Hematocrit 38 % (35-47); Hemoglobin 13.2 g/dL (12.0-16.0); Lymphocyte % 20.4 %; Mean Corpuscular HGB Conc 34 g/dL (31-36); Mean Corpuscular Hemoglobin 31 pg (27-31); Mean Corpuscular Volume 91 fL (80-97); Mean Platelet Volume 7.3 fL (7.4-10.4); Platelet Count 330 10^3/uL (150-450); Red Blood Count 4.19 10^6 /uL (3.70-4.87); Red Cell Distribution Width 13 % (10-15); White Blood Count 8.9 10^3/uL (3.5-10.8)
[2021-05-28 06:59] LABS: Calcium 9.2 mg/dL (8.6-10.3); Potassium 4.2 mmol/L (3.5-5.0); eGFR CKD-EPI 67.7 (>60)
[2021-05-28] MEDS: Venlafaxine XR 75 mg PO SCH (09:24)
[2021-05-28] MEDS: Nicotine PATCH 14 MG/24 HR PATCH TRANSDERM SCH (09:25)
[2021-05-28] MEDS: Heparin 5000 UNITS/ML 1 mL VIAL SUBCUT SCH ×2 (09:25→20:07)
[2021-05-29 06:28] LABS: ABS Basophils 0.1 10^3/ul (0-0.2); ABS Eosinophils 0.6 10^3/ul (0-0.6); ABS Lymphocytes 2.2 10^3/ul (1.0-4.8); ABS Monocytes 0.6 10^3/ul (0-0.8); ABS Neutrophils 3.9 10^3/ul (1.5-7.7); Eosinophil % 7.7 %; Hematocrit 36 % (35-47); Hemoglobin 12.5 g/dL (12.0-16.0); Lymphocyte % 30.1 %; Mean Corpuscular HGB Conc 34 g/dL (31-36); Mean Corpuscular Hemoglobin 31 pg (27-31); Mean Corpuscular Volume 91 fL (80-97); Mean Platelet Volume 7.9 fL (7.4-10.4); Platelet Count 325 10^3/uL (150-450); Red Blood Count 3.99 10^6 /uL (3.70-4.87); Red Cell Distribution Width 13 % (10-15); White Blood Count 7.3 10^3/uL (3.5-10.8)
[2021-05-29] MEDS: Venlafaxine XR 75 mg PO SCH (09:50)
[2021-05-29] MEDS: Heparin 5000 UNITS/ML 1 mL VIAL SUBCUT SCH (09:50)
[2021-05-29] MEDS: Nicotine PATCH 14 MG/24 HR PATCH TRANSDERM SCH (09:50)
[2021-05-29 11:23] VITALS: BP 107/68
== END 2021-05-29 12:05 | disposition home or self-care (01) | DRG 221 ==
LOC: OR 10:30 → SSU 18:33
PROVIDERS: ADMIT Surgery; ATTEND Surgery